=== PATIENT | male | born 1975 ===

== ENCOUNTER 2024-09-04 23:21 | Emergency (ER) | payer OTHER, SELFPAY | END 2024-09-05 00:18 | LOC: ERS 23:21 | DX: S00.81XA Abrasion of other part of head, initial encounter (principal); F10.129 Alcohol abuse with intoxication, unspecified; Z02.89 Encounter for other administrative examinations; X58.XXXA Exposure to other specified factors, initial encounter | CPT/HCPCS: 99283 ==